=== PATIENT | female | born 1985 | race Hispanic/Latino ===

== ENCOUNTER 2023-05-30 15:50 | Emergency (ER) | payer BC ==
[~2023-05-30] VITALS: Ht 162.6 cm; Wt 90.7 kg
[2023-05-30] MEDS ORDERED: IBUPROFEN 800 MG TAB PO ONE (16:30)
[2023-05-30 17:45] VITALS: BP 139/78; PULSE 93; RESP 17; O2SAT 98
[2023-05-30] MEDS ORDERED: IBUP-2077 PO (17:57)
== END 2023-05-30 17:54 | disposition home or self-care (01) ==
LOC: EDH 15:50
DX: S00.83XA Contusion of other part of head, initial encounter (principal); H11.31 Conjunctival hemorrhage, right eye; Y04.0XXA Assault by unarmed brawl or fight, initial encounter; Y93.89 Activity, other specified; Y92.89 Other specified places as the place of occurrence of the external cause; Y99.8 Other external cause status
CPT/HCPCS: 70486

== ENCOUNTER 2024-01-20 16:52 | Emergency (ER) | payer SELFPAY ==
[~2024-01-20] VITALS: Ht 162.6 cm; Wt 95.3 kg
[~2024-01-20 16:52] MED LIST: IBUP-2077 PO
[2024-01-20 17:38] LABS: APPEARANCE,URINE CLEAR (CLEAR); BILIRUBIN,URINE NEGATIVE (NEGATIVE); COLOR,URINE LIGHT-YELLOW (YELLOW); GLUCOSE, URINE (UA) NEGATIVE (NEGATIVE); KETONES,URINE NEGATIVE (NEGATIVE); LEUKOCYTE ESTERASE ,URINE NEGATIVE Leu/uL (NEGATIVE); NITRATE,URINE NEGATIVE (NEGATIVE); OCCULT BLOOD,URINE SMALL (NEGATIVE); PH,URINE 5.5 (5.0-8.0); PROTEIN,URINE 10 mg/dL (NEGATIVE); UROBILINOGEN,URINE 0.2 mg/dL (0.2-1.0)
[2024-01-20 17:41] LABS: ADD UA MICROSCOPIC YES
[2024-01-20 17:43] LABS: BASOPHILS # (AUTO) 0.06 K/uL (0.00-0.20); BASOPHILS % (AUTO) 0.8 % (0.0-5.0); EOSINOPHILS # (AUTO) 0.11 K/uL (0.00-0.70); EOSINOPHILS % (AUTO) 1.5 % (0.0-8.0); HEMATOCRIT 37.5 % (36-48); IMMATURE GRANULOCYTE ABSOLUTE 0.02 K/uL (0-1); LYMPHOCYTES # (AUTO) 2.4 K/uL (1.0-4.8); LYMPHOCYTES % (AUTO) 32.8 % (21.0-51.0); MEAN CORPUSCULAR HEMOGLOBIN 29.2 pg (27.0-33.0); MEAN CORPUSCULAR HGB CONC 32.3 g/dL (32.0-36.0); MEAN CORPUSCULAR VOLUME 90.6 fL (79-99); MONOCYTES # (AUTO) 0.4 K/uL (0.1-1.0); MONOCYTES % (AUTO) 5.3 % (3.0-13.0); NEUTROPHILS # (AUTO) 4.3 K/uL (1.8-7.7); NEUTROPHILS % (AUTO) 59.3 % (40.0-77.0); PLATELET COUNT (AUTO) 364 K/uL (130-400); RED BLOOD CELL COUNT(AUTO) 4.14 MIL/uL (4.00-5.50); RED CELL DISTRIBUTION WIDTH 12.5 % (11.0-15.5); WHITE BLOOD COUNT (AUTO) 7.3 K/uL (4.8-10.8)
[2024-01-20 17:45] LABS: POTASSIUM 3.4 mmol/L (3.5-5.1)
[2024-01-20 17:46] LABS: MUCUS,URINE RARE LPF (None Seen); RBC,URINE 0-1 /HPF (0-1); SQUAMOUS EPITHELIAL CELL,UR RARE /HPF (0-2); WBC,URINE 0-1 /HPF (0-1)
[2024-01-20 18:04] LABS: B-TYPE NATRIURETIC PEPTIDE 19 pg/mL (0-100)
[2024-01-20] MEDS: hydrALAZine 20MG/ML VIAL IV ONE (19:22)
[2024-01-20] MEDS: NIFEDIPINE 10 MG CAP PO ONE (19:38)
[2024-01-20 19:58] VITALS: BP 151/92; PULSE 82; RESP 20; O2SAT 97
== END 2024-01-20 20:03 | disposition home or self-care (01) ==
LOC: EDH 16:52
DX: R07.89 Other chest pain (principal); I10 Essential (primary) hypertension; Z98.890 Other specified postprocedural states
CPT/HCPCS: 36415; 71045; 80048; 81001; 82550; 83880; 84484; 85025; 93005